=== PATIENT | male | born 1955 | race Caucasian/White ===

== ENCOUNTER 2020-10-02 00:18 | Emergency (ER) | payer OTHER ==
[2020-10-02 00:28] VITALS: TEMP 98.6
[2020-10-02 01:34] LABS: Basophils # (A) 0.1 k/uL (0-0.2); Basophils % (A) 1 %; Eosinophils # (A) 0.2 k/uL (0-0.7); Eosinophils % (A) 3 %; HCT 34.1 % (39.0-53.0); HGB 11.1 gm/dL (13.0-17.5); Hypochromasia Slight; Lymphocytes # (A) 0.9 k/uL (1.0-4.8); Lymphocytes % (A) 14 %; MCH 33.9 pg (25.0-35.0); MCHC 32.7 g/dL (31.0-37.0); MCV 103.6 fL (80.0-100.0); Macrocytosis Slight; Mean Platelet Volume 9.4; Monocytes # (A) 0.5 k/uL (0-1.0); Monocytes % (A) 8 %; Neutrophils # (A) 4.5 k/uL (1.3-7.7); Neutrophils % (A) 71 %; Platelet Count 227 k/uL (150-450); RBC 3.29 m/uL (4.30-5.90); RDW 14.2 % (11.5-15.5); WBC 6.3 k/uL (3.8-10.6)
[2020-10-02 02:01] LABS: ALT 55 U/L (4-49); AST 104 U/L (17-59); African American GFR (CKD) >90 (>60 ml/min/1.73 sqM); Albumin 2.9 g/dL (3.5-5.0); Alkaline Phosphatase 58 U/L (38-126); Anion Gap 4 mmol/L; Blood Urea Nitrogen 11 mg/dL (9-20); Calcium 8.8 mg/dL (8.4-10.2); Carbon Dioxide 30 mmol/L (22-30); Chloride 100 mmol/L (98-107); Glucose 106 mg/dL (74-99); Non-African American GFR(CKD) >90 (>60 ml/min/1.73 sqM); Potassium 3.8 mmol/L (3.5-5.1); Sodium 134 mmol/L (137-145); Total Bilirubin 0.2 mg/dL (0.2-1.3); Total Protein 5.1 g/dL (6.3-8.2)
[2020-10-02] MEDS ORDERED: CEPHALEXIN 500MG STARTER PACK 4 CAP BTL PO STA (02:28)
[2020-10-02] MEDS ORDERED: FUROSEMIDE 10 MG/ML 4 ML VIAL IV STA (02:28)
--- NOTE | 2020-10-02 02:30 | ED ---
Skin/Abscess/FB HPI - General Chief complaint: Skin/Abscess/Foreign Body Stated complaint: Bilateral Leg Edema Time Seen by Provider: 10/02/20 00:35 Source: patient Mode of arrival: ambulatory Limitations: no limitations - History of Present Illness Initial comments: 65 year-old male patient presents to the emergency department for evaluation of lower extremity swelling, redness, and wounds. Patient had a fall about a week ago. Did sustain abrasions to his bilateral knees. Has been having leg swelling for the last couple of weeks. States his legs feel tight. Redness is spreading. He reports no fevers or chills. Denies any nausea or vomiting. Has been taking lasix for swelling for the last two days. Denies chest pain, shortness of breath, or dry cough. Denies any history of blood clot or recent travel. Patient denies any recent rash, cough, shortness of breath, chest pain, abdominal pain, nausea, vomiting, diarrhea, constipation, back pain, numbness, tingling, dizziness, weakness, hematuria, dysuria, urinary urgency, urinary frequency, headache, visual changes, or any other complaints. - Related Data Previous Rx's Medication Instructions Recorded Cephalexin [Keflex] 500 mg PO Q6H #40 cap 10/02/20 Allergies Allergy/AdvReac Type Severity Reaction Status Date / Time atenolol Allergy Rash/Hives Verified 10/02/20 00:29 Penicillins Allergy Rash/Hives Verified 10/02/20 00:29 tetanus and diphtheria Allergy Rash/Hives Verified 10/02/20 00:29 toxoids Review of Systems ROS Statement: Those systems with pertinent positive or pertinent negative responses have been documented in the HPI. ROS Other: All systems not noted in ROS Statement are negative. Past Medical History Past Medical History: Hyperlipidemia, Hypertension Additional Past Medical History / Comment(s): cellulitis, alcohol abuse, back problems-chronic pain History of Any Multi-Drug Resistant Organisms: None Reported Past Surgical History: Adenoidectomy, Back Surgery, Tonsillectomy Additional Past Surgical History / Comment(s): sinus surgery Past Psychological History: Depression Smoking Status: Current every day smoker Past Alcohol Use History: Abuse Past Drug Use History: Marijuana General Exam Limitations: no limitations General appearance: alert, in no apparent distress, other (Physical well-d eveloped, well-nourished adult male patient in no acute distress. Vital signs upon presentation are temperature 98.6F oral, pulse 80, respirations 20, blood pressure 133/76, pulse ox 93% on room air.) ENT exam: Present: normal exam, normal oropharynx, mucous membranes moist Respiratory exam: Present: normal lung sounds bilaterally. Absent: respiratory distress, wheezes, rales, rhonchi, stridor Cardiovascular Exam: Present: regular rate, normal rhythm, normal heart sounds. Absent: systolic murmur, diastolic murmur, rubs, gallop, clicks GI/Abdominal exam: Present: soft, normal bowel sounds. Absent: distended, tenderness, guarding, rebound, rigid Extremities exam: Present: full ROM, normal capillary refill, other (Bilateral lower extremity edema, 2+ pitting. There is erythema overlying the dorsal aspect of both feet. There is some erythema extending from left knee abrasion to the thigh. Pedal and posttibial pulses are 2+.). Absent: tenderness, pedal edema, joint swelling, calf tenderness Neurological exam: Present: alert, oriented X3, CN II-XII intact Psychiatric exam: Present: normal affect, normal mood Skin exam: Present: warm, dry, intact, normal color. Absent: rash Course Vital Signs 10/02/20 10/02/20 10/02/20 00:19 01:16 03:04 Temperature 98.6 F Pulse Rate 80 71 72 Respiratory 20 21 19 Rate Blood Pressure 133/76 124/81 111/71 O2 Sat by Pulse 93 L 92 L 93 L Oximetry Medical Decision Making - Medical Decision Making 65-year-old male patient presents to the emergency department today for evaluation of lower extremity swelling and redness. Denies any shortness of breath or cough. Did have abrasions to the bilateral knees. There is evidence for cellulitis. Labs reviewed and were unremarkable. White blood cell count is normal. Is given IV dose of Lasix. Started on Keflex. We discharged follow- up with primary care physician for recheck in 1-2 days. He was given HILARY hose here to wear during the day. Return parameters were discussed in detail. He verbalizes understanding and agrees with this plan. He'll be transferred back t o [place]. Case discussed with my attending Dr. Amaro. - Lab Data Result diagrams: 10/02/20 01:19 08/27/21 01:19 Lab Results 10/02/20 10/02/20 10/02/20 Range/Units 01:19 01:19 01:19 WBC 6.3 (3.8-10.6) k/uL RBC 3.29 L (4.30-5.90) m/uL Hgb 11.1 L (13.0-17.5) gm/dL Hct 34.1 L (39.0-53.0) % MCV 103.6 H (80.0-100.0) fL MCH 33.9 (25.0-35.0) pg MCHC 32.7 (31.0-37.0) g/dL RDW 14.2 (11.5-15.5) % Plt Count 227 (150-450) k/uL MPV 9.4 Neutrophils % 71 % Lymphocytes % 14 % Monocytes % 8 % Eosinophils % 3 % Basophils % 1 % Neutrophils # 4.5 (1.3-7.7) k/uL Lymphocytes # 0.9 L (1.0-4.8) k/uL Monocytes # 0.5 (0-1.0) k/uL Eosinophils # 0.2 (0-0.7) k/uL Basophils # 0.1 (0-0.2) k/uL Hypochromasia Slight Macrocytosis Slight Sodium 134 L (137-145) mmol/L Potassium 3.8 (3.5-5.1) mmol/L Chloride 100 (98-107) mmol/L Carbon Dioxide 30 (22-30) mmol/L Anion Gap 4 mmol/L BUN 11 (9-20) mg/dL Creatinine 0.74 (0.66-1.25) mg/dL Est GFR (CKD-EPI)AfAm >90 (>60 ml/min/1.73 sqM) Est GFR (CKD-EPI)NonAf >90 (>60 ml/min/1.73 sqM) Glucose 106 H (74-99) mg/dL Plasma Lactic Acid [place] 0.8 (0.7-2.0) mmol/L Calcium 8.8 (8.4-10.2) mg/dL Total Bilirubin 0.2 (0.2-1.3) mg/dL AST 104 H (17-59) U/L ALT 55 H (4-49) U/L Alkaline Phosphatase 58 (38-126) U/L Total Protein 5.1 L (6.3-8.2) g/dL Albumin 2.9 L (3.5-5.0) g/dL Disposition Clinical Impression: Cellulitis of both lower extremities, Knee abrasion, Lower extremity edema Disposition: HOME SELF-CARE Condition: Good Instructions (If sedation given, give patient instructions): Cellulitis (ED), Leg Edema (ED) Additional Instructions: take medications as directed. Follow-up with a primary care physician for recheck in 1-2 days. Return for any new, worsening, or concerning symptoms. Prescriptions: Cephalexin [Keflex] 500 mg PO Q6H #40 cap Is patient prescribed a controlled substance at d/c from ED?: No Referrals: Nonstaff,Physician [Primary Care Provider] - 1-2 days Time of Disposition: 02:30
[2020-10-02 03:04] VITALS: BP 111/71; PULSE 72; RESP 19
== END 2020-10-02 04:17 | disposition home or self-care (01) ==
LOC: EC 00:18
DX: S80.212A Abrasion, left knee, initial encounter (principal); S80.211A Abrasion, right knee, initial encounter; L03.116 Cellulitis of left lower limb; L03.115 Cellulitis of right lower limb; F17.200 Nicotine dependence, unspecified, uncomplicated; I10 Essential (primary) hypertension; Z88.0 Allergy status to penicillin; Z88.8 Allergy status to other drugs, medicaments and biological substances; Z88.7 Allergy status to serum and vaccine; X58.XXXA Exposure to other specified factors, initial encounter
CPT/HCPCS: 36415; 80053; 83605; 85025; 99283; 96374; J1940